=== PATIENT | female | born 1930 | race Hispanic/Latino ===

== ENCOUNTER 2017-04-10 16:04 | Inpatient (IN) | payer MEDICARE, OTHER ==
[2017-04-10 16:43] VITALS: BMI 28.8
[2017-04-10] MEDS: diltiaZEM IVPB 100mg in NS 100 ML IV PRN ×4 (17:07→19:01)
--- NOTE | 2017-04-10 17:15 | ED PDOC ---
Arrival/HPI - General Chief Complaint: Flu-like Symptoms Time Seen by Provider: 04/10/17 16:06 Historian: Patient, Family EM Caveat: Acuity of Condition, Unstable Vital Signs - History of Present Illness Narrative History of Present Illness (Text): 04/10/17 17:06 Pt is an 87 yo F BIB her daughter for flu-like symptoms. Pt states that she started to feel body aches and has a non-productive cough at night since Thursday. PMH includes CHF, HTN and COPD for which she take meds however she reports that she stopped taking her medications Thursday-Thursday for unknown reasons. Pt lives alone and is noted to be inconsistent with feeding and general care of herself. States she did not have the flu vaccine this year and has had sick contacts recently (influenza) Denies cp, sob, dizziness, JUAN, GIB, n /v/d. she took her medications this morning. 04/10/17 17:58 Time/Duration: Prior to Arrival Symptom Course: Unchanged Quality: Tightness Severity Level: Moderate Activities at Onset: Rest Context: Sitting Past Medical History - Provider Review Nursing Documentation Reviewed: Yes - Travel History Have you recently traveled outside [place] w/in the past 3 mons?: No - Infectious Disease Hx of Infectious Diseases: None - Tetanus Immunization Tetanus Immunization: Unknown - Cardiac Hx Cardiac Disorders: Yes Hx Congestive Heart Failure: Yes (diagnosed 6 yrs ago) Hx Hypertension: Yes Hx Pacemaker: No - Pulmonary Hx Chronic Obstructive Pulmonary Disease (COPD): Yes - Neurological Hx Paralysis: No - HEENT Hx HEENT Disorder: Yes (glasses) Hx Cataracts: Yes (b/l sx) - Endocrine/Metabolic Hx Endocrine Disorders: No - Hematological/Oncological Hx Blood Transfusions: Yes Hx Blood Transfusion Reaction: No - Musculoskeletal/Rheumatological Hx Musculoskeletal Disorders: Yes (BACK PAIN WHEN WALKING) - Gastrointestinal Hx Gastrointestinal Disorders: (liquid green stools post r hemicolectony) Other/Comment: h/o colon CA - Genitourinary/Gynecological Hx Reproductive Disorders: No - Psychiatric Hx Emotional Abuse: No Hx Physical Abuse: No Hx Substance Use: No - Surgical History Hx Coronary Stent: Yes (x 2 with valve replacement.) Other/Comment: Part of colon removed for colon CA. - Anesthesia Hx Anesthesia: Yes Hx Anesthesia Reactions: No Hx Malignant Hyperthermia: No - Suicidal Assessment Feels Threatened In Home Enviroment: No Family/Social History - Physician Review Nursing Documentation Reviewed: Yes Family/Social History: No Known Family HX Smoking Status: Former Smoker Hx Alcohol Use: No Hx Substance Use: No Allergies/Home Meds Allergies/Adverse Reactions: Allergies No Known Allergies Allergy (Verified 02/19/16 13:06) Home Medications: Home Meds Medication Instructions Recorded Confirmed Aspirin [Aspirin EC] 81 mg PO QAM 01/01/15 04/10/17 Simvastatin 20 mg PO HS 01/01/15 04/10/17 Furosemide [Lasix] 40 mg PO QOTHERDAY 07/09/15 04/10/17 Lisinopril [Zestril] 10 mg PO QAM 07/09/15 04/10/17 Pantoprazole [Protonix] 40 mg PO DAILY 07/09/15 04/10/17 Ergocalciferol (Vitamin D2) 50,000 iu PO SAT 09/12/15 04/10/17 [Vitamin D] Cholestyramine [Questran] 1 packet PO BID 04/10/17 04/10/17 Metoprolol Tartrate [Lopressor] 1 tab PO BID 04/10/17 04/10/17 Review of Systems - Physician Review All systems were reviewed & negative as marked: Yes - Review of Systems Constitutional: Normal Eyes: Normal ENT: Normal Respiratory: Cough (mostly nocturnal episodes) Cardiovascular: Normal Gastrointestinal: Normal Genitourinary Female: Normal Musculoskeletal: Normal, Other (muscles ache throughout) Skin: Normal Neurological: Normal Endocrine: Normal Hemo/Lymphatic: Normal Psychiatric: Normal Physical Exam Vital Signs Temp Pulse Pulse Resp BP Pulse Ox 04/11/17 00:01 97.9 F 64 21 110/61 93 L 04/10/17 23:51 97.9 F 64 62 21 110/61 04/10/17 23:17 62 18 96/55 L 98 04/10/17 22:53 69 16 90/44 L 94 L 04/10/17 22:06 65 16 92/58 L 93 L 04/10/17 19:37 117 H 72/53 L 04/10/17 19:35 106 H 18 65/29 L 91 L 04/10/17 19:20 103 H 15 105/53 L 95 04/10/17 19:01 133 H 18 106/48 L 97 04/10/17 18:41 106 H 16 97 01/26/18 18:30 107 H 15 96/53 L 97 04/10/17 17:55 133 H 18 106/37 L 96 04/10/17 17:43 109 H 16 106/37 L 95 04/10/17 17:30 120 H 18 150/90 96 04/10/17 17:18 89 18 134/80 91 L 04/10/17 17:07 176 H 134/80 04/10/17 16:44 97.8 F 81 18 119/56 L 95 04/10/17 16:39 97.8 F 149 H 17 119/56 L 96 04/10/17 16:25 81 18 Temperature: Afebrile Blood Pressure: Normal Pulse: Tachycardic Respiratory Rate: Normal Appearance: Positive for: Non-Toxic, Comfortable Pain Distress: None Mental Status: Positive for: Alert and Oriented X 3 - Systems Exam Head: Present: Atraumatic, Normocephalic Pupils: Present: PERRL Extroacular Muscles: Present: EOMI Conjunctiva: Present: Normal Mouth: Present: Moist Mucous Membranes Neck: Present: Normal Range of Motion Respiratory/Chest: Present: Clear to Auscultation, Rales, Other (cough). No: Respiratory Distress, Accessory Muscle Use Cardiovascular: Present: Murmurs, Irregular Rhythm, Tachycardic Abdomen: Present: Normal Bowel Sounds. No: Tenderness, Distention, Peritoneal Signs Back: Present: Normal Inspection Upper Extremity: Present: Normal Inspection. No: Cyanosis, Edema Lower Extremity: Present: Normal Inspection. No: Edema Neurological: Present: GCS=15, CN II-XII Intact, Speech Normal Skin: Present: Warm, Dry, Normal Color. No: Rashes Psychiatric: Present: Alert, Oriented x 3, Normal Insight, Normal Concentration Medical Decision Making ED Course and Treatment: 04/10/17 17:48 Pt is an 87 yo F BIB her daughter for flu-like symptoms. Pt states that she started to feel body aches and has a non-productive cough at night since Thursday. Plan: Cardiac workup: ecg, troponins, iso enzymes, cmp, bnp, cbc w diff portable cxr Rapid Flu Iv drip of Cardizem 20 started with stable BP of 119/56 ASA 325 mg po stat Fluids on hold until labs return Nitro paste and lopressor on hold until tachycardia resolved Cardizem drip was set at 20 initially and then down to 10 pt remained tachycardic and BP continued to drop Dr. Vaughn and back shoe cutter Dr. Woods were contacted; Vamp Presser, Dr. Sherman , contacted to admit pt to ICU Consult pending ICU residents assessed pt and deemed her stable after doing another ecg; normal sinus rhythm Pt will go to Telemetry for monitoring and further eval 04/11/17 01:21 Re-evaluation Time: 20:00 (BP resolving and pt stable) Reassessment Condition: Re-examined - Lab Interpretations Lab Results: 04/10/17 16:54 04/10/17 16:54 Lab Results 04/10/17 16:54: Influenza Typ A,B (EIA) Negative for flu a/b 04/10/17 16:54: Sodium 137, Potassium 4.0, Chloride 102, Carbon Dioxide 20 L, Anion Gap 19, BUN 28 H, Creatinine 2.3 H, Est GFR ( Amer) 24, Est GFR ( Non-Af Amer) 20, Random Glucose 170 H, Calcium 9.8, Total Bilirubin 0.6, AST 31 , ALT 22, Alkaline Phosphatase 60, Lactate Dehydrogenase 786 H, Total Creatine Kinase 249 H, CK-MB (CK-2) 3.4, CK-MB (CK-2) % Cancelled, Troponin I 0.57 H*, NT -Pro-B Natriuret Pep 3090 H, Total Protein 7.3, Albumin 4.3, Globulin 3.0, Albumin/Globulin Ratio 1.4 04/10/17 16:54: PT 13.2 H, INR 1.15 H 04/10/17 16:54: WBC 10.9 D, RBC 4.92, Hgb 14.6, Hct 45.8, MCV 93.1, MCH 29.7, MCHC 31.9, RDW 15.7 H, Plt Count 164, MPV 10.5, Gran % 82.9 H, Lymph % (Auto) 12.2 L, [place] % (Auto) 4.8, Eos % (Auto) 0.0 L, Baso % (Auto) 0.1, Gran # 9.05 H , Lymph # 1.3, [place] # 0.5, Eos # 0.0, Baso # 0.01 I have reviewed the lab results: Yes Interpretation: Abnormal lab values - RAD Interpretation Radiology Orders: 04/10/17 16:56 CHEST PORTABLE [RAD] Stat Diamond Merchant: Radiologist - EKG Interpretation Interpreted by ED Physician: Yes (New onset a.fib) - Medication Orders Current Medication Orders: diltiaZEM IVPB 100mg in NS (Cardizem 100mg In Ns) 100 mls @ 5 mls/hr IV .Q20H PRN; Protocol; 5 MG/HR PRN Reason: TITRATE PER MD ORDER Last Admin: 04/10/17 19:01 Dose: 20 mls/hr eMAR Start Stop Document 04/10/17 19:01 SE (Rec: 04/10/17 19:02 SE [id number]) Intravenous Solution Start Date 04/10/17 Start Time 19:02 Discontinued Medications Aspirin (Aspirin) 325 mg PO STAT STA Stop: 04/10/17 17:42 Last Admin: 04/10/17 17:58 Dose: 325 mg Diltiazem HCl (Cardizem) 20 mg IVP STAT STA Stop: 04/10/17 16:57 Last Admin: 04/10/17 17:07 Dose: 20 mg IVP Administration Document 04/10/17 17:07 IT (Rec: 04/10/17 17:11 IT [id number]) Charges for Administration # of IVP Administrations 1 MAR Pulse and Blood Pressure Document 04/10/17 17:07 IT (Rec: 04/10/17 17:11 IT [id number]) Pulse Pulse Rate (60-90) 176 Blood Pressure Blood Pressure (100/60-150/90) 134/80 Sodium Chloride (Sodium Chloride 0.9%) 500 mls @ 999 mls/hr IV .Q31M STA Stop: 04/10/17 18:40 Last Admin: 04/10/17 18:12 Dose: 999 mls/hr eMAR Start Stop Document 04/10/17 18:12 SE (Rec: 04/10/17 18:12 SE [id number]) Intravenous Solution Start Date 04/10/17 Start Time 18:12 Disposition/Present on Arrival - Present on Arrival Any Indicators Present on Arrival: No History of DVT/PE: No History of Uncontrolled Diabetes: No Urinary Catheter: No History of Decub. Ulcer: No History Surgical Site Infection Following: None - Disposition Have Diagnosis and Disposition been Completed?: Yes Diagnosis: New onset atrial fibrillation, Cough Disposition: HOSPITALIZED Disposition Time: 22:00 (ICU resident evaluated; pt to go to Tele) Patient Plan: Admission Patient Problems: Current Active Problems Problem Status Onset New onset atrial fibrillation Acute Cough Acute Condition: STABLE
[2017-04-10 17:23] LABS: INR 1.15 (0.93-1.08); PROTHROMBIN TIME 13.2 SECONDS (9.4-12.5)
[2017-04-10 17:24] LABS: BASO # 0.01 K/mm3 (0.0-2.0); BASO % 0.1 % (0.0-3.0); GRAN # 9.05 (1.4-6.5); GRAN % 82.9 % (50.0-68.0); HEMOGLOBIN 14.6 g/dL (12.0-16.0); LYMPH # 1.3 (1.2-3.4); LYMPH % 12.2 % (22.0-35.0); MEAN CELL VOLUME 93.1 fl (80.0-105.0); MEAN CORPUSCULAR HEMOGLOBIN 29.7 pg (25.0-35.0); MEAN CORPUSCULAR HGB CONC 31.9 g/dl (31.0-37.0); MEAN PLATELET VOLUME 10.5 fl (7.0-11.0); MONO # 0.5 (0.1-0.6); MONO % 4.8 % (1.0-6.0); RBC 4.92 10^6/uL (3.5-6.1); RED CELL DISTRIBUTION WIDTH 15.7 % (11.5-14.5); WHITE BLOOD COUNT 10.9 10^3/ul (4.5-11.0)
[2017-04-10 17:38] LABS: ALB/GLOB RATIO 1.4 (1.1-1.8); ALBUMIN 4.3 g/dL (3.0-4.8); CALCIUM 9.8 mg/dL (8.4-10.5)
[2017-04-10] MEDS ORDERED: Sodium Chloride 0.9% 500 ML IV STA (18:10)
[2017-04-10 18:44] LABS: CK-MB 3.4 ng/mL (0.0-3.6); TROPONIN I 0.57 ng/mL
--- NOTE | 2017-04-10 21:57 | CP.PCM.CON ---
<Juliet Posadas - Last Filed: 04/10/17 22:51> History of Present Illness - History of Present Illness History of Present Illness: ICU consult note for Dr. Sherman Reason for consult: hypotention post Cardizem drip due to rvr afib. Patient is an 87 y/o with PMHx of CAD s/p CABG, CHF? valvular replacement?, colon cancer s/p resection, was on chemo, htn, hld, history of intermittent diarrhea was on antibiotics who initially was sent from PMD's office due to flue like symptoms for 4 days and was found to have RVR afib in the ED. Patient was started on Cardizem drip, and developed a transient episode of hypotension, thus ICU is consulted to evaluate patient. Patient states she run out of her medications including Lasix for few days, then on Thursday she started to experience dry cough. Patient was able to refill the meds later on Thursday, but decided to take an extra dose. However the cough persisted, on , patient noted when she coughs she experiences loose bowel movement simultaneously. Admits to body aches, denies fever, chest pain. Denies palpitations. Patient also added since Thursday she's experiencing poor oral intake. Denies vomiting. PMHx: CAD s/p CABg 6 years ago, CHF? valvular replacement?, colon cancer s/p resection 2014, was on chemo, htn, hld, history of intermittent diarrhea was on antibiotics PSHx: CABG, valvular replacement, right hemicolectomy with lymphadenectomy. FMHx: + family history of cancers. Social: former tobacco, quit 6 years ago, denies alcohol and illicit drug use. Home meds: asa 8 1 mg, cholestyramine 4 gm per day, Lasix 40 mg, lisinopril 10 mg, metoprolol 50 mg, protonix 40 mg, zocor 20 mg Review of Systems - Review of Systems All systems: reviewed and no additional remarkable complaints except Review of Systems: 12 point ROS reviewed, all negative except as per HPI. Past Patient History - Infectious Disease Hx of Infectious Diseases: None - Tetanus Immunizations Tetanus Immunization: Unknown - Past Social History Smoking Status: Former Smoker Alcohol: None Drugs: Denies Home Situation {Lives}: Alone - CARDIAC Hx Cardiac Disorders: Yes Hx Congestive Heart Failure: Yes (diagnosed 6 yrs ago) Hx Hypertension: Yes Hx Pacemaker: No - PULMONARY Hx Chronic Obstructive Pulmonary Disease (COPD): Yes - NEUROLOGICAL Hx Paralysis: No - HEENT Hx HEENT Problems: Yes (glasses) Hx Cataracts: Yes (b/l sx) - ENDOCRINE/METABOLIC Hx Endocrine Disorders: No - HEMATOLOGICAL/ONCOLOGICAL Hx Blood Transfusions: Yes Hx Blood Transfusion Reaction: No - MUSCULOSKELETAL/RHEUMATOLOGICAL Hx Musculoskeletal Disorders: Yes (BACK PAIN WHEN WALKING) - GASTROINTESTINAL Hx Gastrointestinal Disorders: (liquid green stools post r hemicolectony) Other/Comment: h/o colon CA - GENITOURINARY/GYNECOLOGICAL Hx Reproductive Disorders: No - PSYCHIATRIC Hx Emotional Abuse: No Hx Physical Abuse: No Hx Substance Use: No - SURGICAL HISTORY Hx Coronary Stent: Yes (x 2 with valve replacement.) Other/Comment: Part of colon removed for colon CA. - ANESTHESIA Hx Anesthesia: Yes Hx Anesthesia Reactions: No Hx Malignant Hyperthermia: No Meds Allergies/Adverse Reactions: Allergies Allergy/AdvReac Type Severity Reaction Status Date / Time No Known Allergies Allergy Verified 02/19/16 13:06 - Medications Medications: Current Medications diltiaZEM IVPB 100mg in NS (Cardizem 100mg In Ns) 100 mls @ 5 mls/hr IV .Q20H PRN; Protocol; 5 MG/HR PRN Reason: TITRATE PER MD ORDER Last Admin: 04/10/17 19:01 Dose: 20 mls/hr Physical Exam - Constitutional Appears: No Acute Distress - Head Exam Head Exam: ATRAUMATIC, NORMAL INSPECTION, NORMOCEPHALIC - Eye Exam Eye Exam: EOMI, Normal appearance, PERRL. absent: Scleral icterus Pupil Exam: NORMAL ACCOMODATION - ENT Exam ENT Exam: Mucous Membranes Dry - Neck Exam Neck exam: Positive for: Full Rom, Normal Inspection. Negative for: Tenderness - Respiratory Exam Respiratory Exam: Rales (mild, at the bases.), NORMAL BREATHING PATTERN. absent : Accessory Muscle Use, Chest Wall Tenderness, Decreased Breath Sounds, Prolonged Expiratory Phase, Rhonchi, Wheezes, Respiratory Distress, Stridor - Cardiovascular Exam Cardiovascular Exam: REGULAR RHYTHM, RRR, +S1, +S2. absent: Bradycardia, Tachycardia, Clicks, Diastolic murmur, Gallop, Irregular Rhythm, JVD, Rubs, +S4 , Systolic Murmur - GI/Abdominal Exam GI & Abdominal Exam: Normal Bowel Sounds, Soft. absent: Diminished Bowel Sounds , Distended, Firm, Guarding, Rebound, Rigid, Tenderness Additional comments: Well healed old surgical scar. - Extremities Exam Extremities exam: Positive for: normal inspection, pedal pulses present. Negative for: pedal edema, tenderness - Back Exam Back exam: NORMAL INSPECTION - Neurological Exam Neurological exam: Alert, Oriented x3 - Psychiatric Exam Psychiatric exam: Normal Affect, Normal Mood - Skin Skin Exam: Dry, Intact, Normal Color, Warm Results - Vital Signs Recent Vital Signs: Last Vital Signs Temp 97.8 F 04/10/17 16:44 Pulse 117 H 04/10/17 19:37 Resp 18 04/10/17 19:35 BP 72/53 L 04/10/17 19:37 Pulse Ox 91 L 04/10/17 19:35 - Labs Result Diagrams: 04/10/17 16:54 04/10/17 16:54 Labs: Laboratory Results - last 24 hr 04/10/17 04/10/17 04/10/17 16:54 16:54 16:54 WBC 10.9 D RBC 4.92 Hgb 14.6 Hct 45.8 MCV 93.1 MCH 29.7 MCHC 31.9 RDW 15.7 H Plt Count 164 MPV 10.5 Gran % 82.9 H Lymph % (Auto) 12.2 L Real % (Auto) 4.8 Eos % (Auto) 0.0 L Baso % (Auto) 0.1 Gran # 9.05 H Lymph # 1.3 Real # 0.5 Eos # 0.0 Baso # 0.01 PT 13.2 H INR 1.15 H Sodium 137 Potassium 4.0 Chloride 102 Carbon Dioxide 20 L Anion Gap 19 BUN 28 H Creatinine 2.3 H Est GFR ( Amer) 24 Est GFR (Non-Af Amer) 20 Random Glucose 170 H Calcium 9.8 Total Bilirubin 0.6 AST 31 ALT 22 Alkaline Phosphatase 60 Lactate Dehydrogenase 786 H Total Creatine Kinase 249 H CK-MB (CK-2) 3.4 CK-MB (CK-2) % Cancelled Troponin I 0.57 H* NT-Pro-B Natriuret Pep 3090 H Total Protein 7.3 Albumin 4.3 Globulin 3.0 Albumin/Globulin Ratio 1.4 Influenza Typ A,B (EIA) 04/10/17 16:54 WBC RBC Hgb Hct MCV MCH MCHC RDW Plt Count MPV Gran % Lymph % (Auto) Real % (Auto) Eos % (Auto) Baso % (Auto) Gran # Lymph # Real # Eos # Baso # PT INR Sodium Potassium Chloride Carbon Dioxide Anion Gap BUN Creatinine Est GFR ( Amer) Est GFR (Non-Af Amer) Random Glucose Calcium Total Bilirubin AST ALT Alkaline Phosphatase Lactate Dehydrogenase Total Creatine Kinase CK-MB (CK-2) CK-MB (CK-2) % Troponin I NT-Pro-B Natriuret Pep Total Protein Albumin Globulin Albumin/Globulin Ratio Influenza Typ A,B (EIA) Negative for flu a/b - EKG Data EKG Interpreted by: Myself EKG shows normal: Sinus rhythm Rate: Normal Assessment & Plan - Assessment and Plan (Free Text) Assessment: Patient is an 87 y/o with PMHx of CAD s/p CABG, CHF? valvular replacement?, colon cancer s/p resection, was on chemo, htn, hld, history of intermittent diarrhea was on antibiotics who initially presented to the ED due to flue like symptoms for 4 days and was found to have RVR afib on the initial EKG in the ED. Patient was started on Cardizem drip, and developed transient hypotention, which eventually improved with a litter of fluid. Patient's heart was also controlled and the rate returned to sinus on the monitor and confirmed on repeat EKG. Patient to be admitted to telemetry floor. Plan: Neuro: alert and wake, speaking in full sentences, doesn't appear to be confused. Pulm: stable, saturating 95-100% on room air. No clinical signs of fluid overload. Mild vascular congestion on chest x-ray, however no leg edema, and no respiratory distress other than the dry cough. Rapid flu negative. oxygen supplementation prn Cardiac: RVR afib on initial EKG, now in normal sinus rhythm post Cardizem drip. Transient hypotention: resolved with fluid hydration h/o CAD with CABG. with troponin leak and elevated pro bnp Recommend tele monitoring Consider cardiology eval, and echo Trend troponin ID: Tachycardia resolved, no leukocytosis and afebrile, monitor for sepsis. Renal: ROSALIE likely due to dehydration, low intake and diarrhea. Fluid hydration as tolerated. Endo: Hyperglycemia - continue to monitor Heme: stable Gi: chronic recurrent diarrhea- recommend stool testing for c. diff due to recent antibiotics. Dispo- admit to tele. Please re-consult ICU prn if medical status changes. Patient seen, examined and case discussed with Dr Sherman. - Date & Time Date: 04/10/17 Time: 10:40 <Benji Sherman - Last Filed: 04/11/17 06:17> Meds - Medications Medications: Current Medications diltiaZEM IVPB 100mg in NS (Cardizem 100mg In Ns) 100 mls @ 5 mls/hr IV .Q20H PRN; Protocol; 5 MG/HR PRN Reason: TITRATE PER MD ORDER Last Admin: 04/10/17 19:01 Dose: 20 mls/hr Results - Vital Signs Recent Vital Signs: Last Vital Signs Temp 97.9 F 04/11/17 00:01 Pulse 74 04/11/17 05:58 Resp 21 04/11/17 00:01 BP 110/61 04/11/17 00:01 Pulse Ox 93 L 04/11/17 00:01 - Labs Result Diagrams: 04/10/17 16:54 04/10/17 16:54 Labs: Laboratory Results - last 24 hr 04/11/17 05:50 Urine Color Yellow Urine Appearance Sl cloudy Urine pH 5.0 Ur Specific [place] >= 1.030 Urine Protein Trace H Urine Glucose (UA) Negative Urine Ketones Negative Urine Blood Small H Urine Nitrate Negative Urine Bilirubin Negative Urine Urobilinogen 0.2 Ur Leukocyte Esterase Small H Attending/Attestation - Attestation I have personally seen and examined this patient.: Yes I have fully participated in the care of the patient.: Yes I have reviewed all pertinent clinical information: Yes Notes (Text): 04/11/17 06:14 I agree with the above mentioned note and exam as listed by the resident with the addition/exception of the followin87 y/o female with CAD s/p CABG, bioprosthetic Aortic valve, Htn, Colon Ca s/p right sided colectomy + chemotherapy presented to the ED after seeing her PMD due to complaints of a cough and flu-like symptoms. The patient reports that she ran out of her diuretic medication (lasix) and was not taking it for a few days. She felt a cough and congestion, so she took extra pills when she next filled her prescription. In the ED she was found to be in Afib with rvr; started on a cardizem drip and subsequently became hypotensive. During the time of my examination of the patient, she had reverted back to sinus rhythm with a HR in the 60's and her SBP had returned to 114mmHg. She denied any complaints of chest pain/palpitations/shortness of breath/cough/fever/chills. She did not require an ICU admission and could be admitted to telemetry for further evaluation of her ROSALIE, elevated trop in the setting of ROSALIE and paroxysmal Afib.
[2017-04-11 05:56] LABS: URINE BILIRUBIN NEGATIVE (NEGATIVE); URINE BLOOD SMALL (NEGATIVE); URINE GLUCOSE (UA) NEGATIVE (NEGATIVE); URINE LEUKOCYTE ESTERASE SMALL Leu/uL (NEGATIVE); URINE NITRATE NEGATIVE (NEGATIVE); URINE PROTEIN TRACE mg/dL (<30 mg/dL); URINE UROBILINOGEN 0.2 E.U./dL (<1 E.U./dL)
[2017-04-11 05:57] LABS: URINE APPEARANCE SL CLOUDY (CLEAR); URINE COLOR YELLOW (YELLOW)
[2017-04-11 06:30] LABS: URINE BACTERIA MANY (NEG)
[2017-04-11] MEDS ORDERED: Sodium Chloride 0.9% 1,000 ML IV SCH (07:15)
--- NOTE | 2017-04-11 08:20 | RAD ---
HISTORY: A-FIB with RVR COMPARISON: 01/12/2015 FINDINGS: LUNGS: The lungs are well inflated. There is mild pulmonary venous congestion. No focal consolidation. PLEURA: No significant pleural effusion identified, no pneumothorax apparent. CARDIOVASCULAR: There is mild cardiomegaly. Status post CABG with OSSEOUS STRUCTURES: No significant abnormalities. VISUALIZED UPPER ABDOMEN: Normal. OTHER FINDINGS: None. IMPRESSION: Mild cardiomegaly and pulmonary venous congestion. No active pulmonary disease.
[2017-04-11] MEDS: Cholestyramine 4 gm/Pkt UD PO SCH ×2 (10:07→17:39)
--- NOTE | 2017-04-11 13:34 | CON ---
DATE: 04/11/2017 REQUESTING PHYSICIAN: Dr. Montaño REASON FOR CONSULTATION: Dyspnea and atrial fibrillation. HISTORY OF PRESENT ILLNESS: This is an 87-year-old woman known to us from prior admissions with a history of prior bypass surgery and aortic valve replacement who was sent to the Emergency Room by Dr. Purdy after presenting with body aches and nonproductive cough. In the Emergency Room, she was noted in atrial fibrillation with rapid ventricular response and treated with IV diltiazem. She had a transient hypotension. This improved with fluid infusion. She has subsequently converted to sinus rhythm.. She is currently seen lying in bed on telemetry and feels improved. She continues to have a cough. Her past history is notable for the problems mentioned above. She has undergone prior hemicolectomy for colon cancer. She has a history of COPD as well. She also has a history of hyperlipidemia. MEDICATIONS: Her medications at home include aspirin, simvastatin 20 mg daily, Lasix 40 mg every other day, Zestril 10 mg daily, Protonix 40 mg daily, Questran and metoprolol. ALLERGIES: SHE HAS NO REPORTED ALLERGIES. SOCIAL HISTORY: She is a former smoker. She denies alcohol use. FAMILY HISTORY: Both parents are from age-related illness. REVIEW OF SYSTEMS: A 10-point review of systems is otherwise unremarkable. PHYSICAL EXAMINATION: GENERAL: She is a very elderly woman who appears comfortable at the present time. VITAL SIGNS: Her blood pressure is 118/70 with a pulse of 70 and sinus, and respirations are 16. She is afebrile. HEENT: Normocephalic and atraumatic. NECK: Supple. No JVD noted. CHEST: Bilateral scattered rhonchi heard. HEART: PMI displaced laterally with systolic murmur at left sternal border. GASTROINTESTINAL: The abdomen is soft and nontender with normoactive bowel sounds. EXTREMITIES: No edema. SKIN: Warm and dry. PSYCHIATRIC: Normal mood and affect. NEUROLOGIC: Alert and oriented x3. No gross motor sensory is appreciable. DIAGNOSTIC DATA: Her white count is 10.9 and hemoglobin and hematocrit are 14.6 and 45.8 with platelet count of 164,000. PT and PTT 13.2 and 1.15. Potassium is 4.0, BUN and creatinine are 28 and 2.3, and glucose is 170. Troponin is 0.57. BNP of 3090. CK 249 with a negative MB fraction. Chest x-ray reveals an enlarged cardiac silhouette with post-sternotomy changes and relatively clear lung gibson. Electrocardiogram revealed atrial fibrillation with rapid ventricular response. Atrial fibrillation with rapid ventricular response, right bundle-branch block with left anterior hemiblock. IMPRESSION 1. Atrial fibrillation with rapid ventricular response, now in sinus rhythm. 2. Coronary disease status post prior bypass surgery and aortic valve replacement, clinically stable. 3. Borderline troponin with borderline creatine kinase and negative MB fraction significance unclear, no clear evidence of cardiac ischemia present. 4. Renal insufficiency, unclear if this is acute on chronic, may also be contributing to mildly elevated troponin due to decreased renal clearance. 5. Rest of problems as noted. RECOMMENDATIONS: At this time, her metoprolol will be continued. IV diltiazem has been discontinued. Aspirin will be continued for now. She has had a history of gastrointestinal bleeding in the past and may not be an ideal candidate for anticoagulant therapy. She has no evidence of recurrent atrial fibrillation and would likely be safer to continue aspirin alone. An echocardiogram will be obtained and follow up enzymes obtained as well. If she remains in sinus rhythm, hopefully early discharge can be planned. Thank you for this consultation and will be happy to follow along as needed. Vishnu Castle MD [facility]
--- NOTE | 2017-04-11 15:58 | CARD ---
APPROVED REPORT EKG Measurement Heart [id number] <Conclusion> Sinus rhythm with premature supraventricular complexes Right bundle branch block Left anterior fascicular block Bifascicular block Moderate voltage criteria for LVH, may be normal variant Cannot rule out Septal infarct, age undetermined Abnormal ECG
--- NOTE | 2017-04-11 16:03 | CARD ---
APPROVED REPORT EKG Measurement Heart [id number] <Conclusion> Atrial fibrillation Right bundle branch block Left anterior fascicular block Bifascicular block Voltage criteria for left ventricular hypertrophy Cannot rule out Septal infarct, age undetermined Abnormal ECG
--- NOTE | 2017-04-11 16:05 | CARD ---
APPROVED REPORT EKG Measurement Heart [id number] <Conclusion> Atrial fibrillation with rapid ventricular response Right bundle branch block Left anterior fascicular block Bifascicular block Voltage criteria for left ventricular hypertrophy Possible Lateral infarct, age undetermined Abnormal ECG
--- NOTE | 2017-04-12 04:38 | HP ---
DATE: HISTORY OF PRESENT ILLNESS: The patient is an 87-year-old who came to Emergency Room on 04/10/2017 because of generalized weakness, not feeling well, has generalized body aches and pain, complained of cough and congestion for the last three to four days. She thought she has a flu, so daughter brought her to Emergency Room for further evaluation. Denies any nausea or vomiting. While she was in the ER, she was found to have rapid Afib, was given IV diltiazem with good response. Later on, she was converted into sinus rhythm, so she was admitted for further evaluation. PAST MEDICAL HISTORY: Significant for: 1. Open heart surgery. 2. Status post aortic valve replacement. 3. History of COPD. 4. History of hypertension. 5. Hyperlipidemia. 6. History of peptic ulcer disease. ALLERGIES: SHE IS NOT ALLERGIC TO ANY MEDICATIONS. MEDICATIONS AT HOME: She is on aspirin 81 daily, simvastatin 20 mg daily, Lasix 40 mg every other day, Zestril 10 mg daily, Protonix 40 daily, Questran, and metoprolol 25 daily. SOCIAL HISTORY: She lives with her daughter, history of smoking in the past. FAMILY HISTORY: Not relevant. REVIEW OF SYSTEMS: Significant for generalized body aches and pain, but states she is feeling better now. PHYSICAL EXAMINATION: GENERAL: She is awake, alert, oriented and communicative. VITAL SIGNS: She is afebrile, pulse 72, respirations 16 and blood pressure 113/56. LUNGS: Bilateral fair airflow. No rhonchi or crackle. HEART: S1 and S2 audible. Regular rate and rhythm. ABDOMEN: Soft, obese, and nontender. No rebound. No guarding. NEUROLOGIC: The patient is awake, alert, oriented, and communicative. Moves all extremities. LABORATORY EXAMINATION: WBC 10.9, hemoglobin 14, hematocrit 45 and platelets of 164. PT 13.2, INR 1.15. Chemistry; sodium 137, potassium 4.0, chloride 102, CO2 of 20, BUN 28, creatinine 2.3 and blood sugar of 170. LFTs are within normal limits. Alkaline phosphatase is 60, LDH is 786. Troponin is 0.57, followup is 1.69. Urinalysis shows small leukocytes. Flu test is negative. ASSESSMENT: 1. Non-ST elevation myocardial infarction. 2. Rapid atrial fibrillation. 3. Coronary artery disease status post open heart surgery. 4. Hyperlipidemia. 5. Renal insufficiency. PLAN: Currently, the patient is on aspirin 81 daily. She is on statin. She has been started on beta-rufus. Echocardiogram has been requested. We will follow up her electrolyte. Cardiology input noted and appreciated. We will follow up with this patient in a.m. Violet De La Vega MD
[2017-04-12 09:00] LABS: BASO # 0.01 K/mm3 (0.0-2.0); BASO % 0.2 % (0.0-3.0); EOS # 0.1 (0.0-0.7); EOS % 2.2 % (1.5-5.0); GRAN # 2.28 (1.4-6.5); GRAN % 50.9 % (50.0-68.0); HEMOGLOBIN 12.9 g/dL (12.0-16.0); LYMPH # 1.5 (1.2-3.4); LYMPH % 34.2 % (22.0-35.0); MEAN CELL VOLUME 92.8 fl (80.0-105.0); MEAN CORPUSCULAR HEMOGLOBIN 29.1 pg (25.0-35.0); MEAN CORPUSCULAR HGB CONC 31.3 g/dl (31.0-37.0); MEAN PLATELET VOLUME 10.4 fl (7.0-11.0); MONO # 0.6 (0.1-0.6); MONO % 12.5 % (1.0-6.0); RBC 4.44 10^6/uL (3.5-6.1); RED CELL DISTRIBUTION WIDTH 15.5 % (11.5-14.5); WHITE BLOOD COUNT 4.5 10^3/ul (4.5-11.0)
[2017-04-12 09:11] LABS: ALBUMIN 3.5 g/dL (3.0-4.8); BLOOD UREA NITROGEN 20 mg/dL (7-21); CALCIUM 9.1 mg/dL (8.4-10.5); GFR AFRICAN-AMERICAN > 60; GFR NON-AFRICAN AMERICAN 53
[2017-04-12 09:12] LABS: ALB/GLOB RATIO 1.3 (1.1-1.8); ALT/SGPT 32 U/L (7-56); AST/SGOT 37 U/L (14-36)
[2017-04-12] MEDS: Cholestyramine 4 gm/Pkt UD PO SCH ×2 (10:18→17:27)
--- NOTE | 2017-04-12 18:03 | PN ---
DATE: 04/12/2017 SUBJECTIVE: The patient is seen sitting in bed on telemetry. She feels somewhat more comfortable. She continues to have a cough, but is less dyspneic. She denies any chest pain. CURRENT MEDICATIONS: Include Ecotrin, Lipitor, metoprolol, and Questran. PHYSICAL EXAMINATION: VITAL SIGNS: Her blood pressure is 120/60 with a pulse of 74 and sinus, respirations are 14. She has had no recurrence of atrial fibrillation. She is afebrile. HEENT: No JVD. CHEST: Few scattered rhonchi. HEART: PMI displaced laterally with systolic murmur at the left sternal border. ABDOMEN: Soft and nontender with bowel sounds. EXTREMITIES: No edema. DIAGNOSTIC DATA: Troponin 0.40. Potassium 4.1, BUN and creatinine are 20 and 1.0. White count is 4.5, hemoglobin and hematocrit are 12.9 and 41.2 with platelet count of 145,000. IMPRESSION: 1. Paroxysmal atrial fibrillation, currently in sinus rhythm. 2. Coronary artery disease, status post prior bypass surgery and aortic valve replacement, stable at present. 3. Borderline troponin with negative CK-MB, doubt clear cardiac ischemia. 4. Renal insufficiency, clinically improved. RECOMMENDATIONS: Her current medications will be continued for now. As long she has no evidence of recurrent atrial fibrillation, anticoagulant therapy will be withheld given the risk of bleeding based upon her multiple episodes of severe gastrointestinal bleeding in the past. An echocardiogram is pending. She was encouraged to ambulate. We will follow and make further changes as appropriate . Vishnu Castle MD
[2017-04-12] MEDS: Levalbuterol 1.25 MG/3 ML Inhal Soln UD IH SCH (20:50)
--- NOTE | 2017-04-12 21:38 | PN ---
DATE: SUBJECTIVE: The patient is an 87-year-old, seen and examined, lying in bed, seems to be comfortable, and complain of cough and congestion. She states she is congested and coughing and unable to bring up phlegm. PHYSICAL EXAMINATION: VITAL SIGNS: She is afebrile, pulse 72, respirations 20, and blood pressure 120/64. LUNGS: Bilateral soft crackle in upper and mid lung region. HEART: S1 and S2 audible. Irregular rate control. ABDOMEN: Soft, nontender, and obese. No hepatosplenomegaly. NEUROLOGIC: She is awake, alert, and oriented. Able to communicate. Bilateral leg +1 edema. LABORATORY DATA: WBC is 4.5, hemoglobin 12.9, hematocrit 41, and platelet of 145. Chemistry; sodium 143, potassium 4.1, chloride 112, CO2 of 20, BUN 20 and creatinine of 1.0. Blood sugar of 76. ASSESSMENT: 1. Status post non-ST elevation myocardial infarction. 2. Paroxysmal atrial fibrillation. 3. Chronic obstructive pulmonary disease. 4. Hypertension. 5. Congestive heart failure. 6. Coronary artery disease, history of open heart surgery. PLAN: I will start the patient on Xopenex, give her a small dose of steroid, and give her a dose of Lasix. We will get echocardiogram in a.m. Also start her on small dose of steroid. Violet De La Vega MD
[2017-04-12] MEDS ORDERED: MethylPREDNISolone 40 mg Vial IV SCH (22:00)
[2017-04-12 23:55] VITALS: O2SAT 93
[2017-04-13] MEDS: Levalbuterol 1.25 MG/3 ML Inhal Soln UD IH SCH ×3 (02:18→13:48)
[2017-04-13 07:10] LABS: HEMOGLOBIN 14.1 g/dL (12.0-16.0); MEAN CORPUSCULAR HEMOGLOBIN 29.4 pg (25.0-35.0); MEAN CORPUSCULAR HGB CONC 32.3 g/dl (31.0-37.0); MEAN PLATELET VOLUME 10.3 fl (7.0-11.0); RBC 4.8 10^6/uL (3.5-6.1)
[2017-04-13 07:35] LABS: ALB/GLOB RATIO 1.3 (1.1-1.8); ALT/SGPT 41 U/L (7-56); AST/SGOT 45 U/L (14-36); BLOOD UREA NITROGEN 22 mg/dL (7-21); CALCIUM 9.6 mg/dL (8.4-10.5); GFR AFRICAN-AMERICAN > 60; GFR NON-AFRICAN AMERICAN 60
[2017-04-13 07:56] LABS: WHITE BLOOD COUNT 2.3 10^3/ul (4.5-11.0)
[2017-04-13 08:05] LABS: GRAN # 1.29 (1.4-6.5); GRAN % 57.6 % (50.0-68.0); LYMPH # 0.9 (1.2-3.4); LYMPH % 38.4 % (22.0-35.0)
[2017-04-13 08:06] LABS: MONO # 0.1 (0.1-0.6)
--- NOTE | 2017-04-13 08:32 | CP.PCM.PN ---
Subjective - Date & Time of Evaluation Date of Evaluation: 04/13/17 Time of Evaluation: 07:00 - Subjective Subjective: Stable on 3R. No CP. + congested V/S note. RSR, NO AF seen. PE: Lungs: rhonchi Cor.: S1S2 Abd.: soft Ext.: mild edema Neuro.: alert Labs: KUQ=0510, Cr.= 0.9. + trops noted. Objective - Vital Signs/Intake and Output Vital Signs (last 24 hours): Temp Pulse Resp BP Pulse Ox 97.4 F L 68 20 166/68 H 93 L 04/13/17 05:55 04/13/17 06:36 04/13/17 05:55 04/13/17 06:36 04/12/17 23:54 Intake and Output: 04/13/17 04/13/17 06:59 18:59 Intake Total 180 Balance 180 - Medications Medications: Current Medications Aspirin (Ecotrin) 81 mg PO QAM [facility] Last Admin: 04/12/17 10:18 Dose: 81 mg Atorvastatin Calcium (Lipitor) 10 mg PO HS [facility] Last Admin: 04/12/17 21:46 Dose: 10 mg Cholestyramine Resin (Questran) 4 gm PO BID [facility] Last Admin: 04/12/17 17:27 Dose: 4 gm Furosemide (Lasix) 40 mg IVP DAILY [facility] Last Admin: 04/12/17 17:01 Dose: 40 mg Levalbuterol HCl (Xopenex) 1.25 mg IH [id number] [facility] Last Admin: 04/13/17 07:42 Dose: 1.25 mg Methylprednisolone (Solu-Medrol) 40 mg IV Q12 [facility] Last Admin: 04/12/17 21:53 Dose: 40 mg Metoprolol Tartrate (Lopressor) 50 mg PO BID [facility] Last Admin: 04/12/17 17:27 Dose: 50 mg - Labs Labs: 04/13/17 06:30 04/13/17 06:30 PT 13.2 SECONDS (9.4-12.5) H 04/10/17 16:54 INR 1.15 (0.93-1.08) H 04/10/17 16:54 Assessment and Plan - Assessment and Plan (Free Text) Assessment: Cough/Body Aches/Congestion AF with RVR > RSR Transient hypotension + trops, doubt acute TX Acute renal insufficiency, resolved CAD/CABG/AVR COPD/Former Smoker Colon cancer/Hemicolectomy Plan: Continue metoprolol and ASA. IV Lasix Check echo OB as garcía As per Dr. De La Vega
--- NOTE | 2017-04-13 08:46 | PQF GENQUE ---
This form is a permanent part of the medical record Clarification of your documentation is requested to better reflect the severity of illness and intensity of treatment of your patient. Indicators present Card note- 3. Borderline troponin with negative CK-MB, doubt clear cardiac ischemia. Please document if NSTEMI was ruled out. No ischemia [] Specify: [] [] Specify: [] [] Specify: [] [] Specify: [] Location in the medical record that reflects the above clinical findings: [] Treatment Provided: [] PHYSICIAN'S RESPONSE Based on your medical judgment of the clinical indicators outlined above please clarify the following: [] Practitioner response [] If unable to determine, please check the box, sign and date. Present On Admission (POA) Indicator: [] Present at the time of admission [] Not present at the time of admission [] Clinically Undetermined In responding to this query, please exercise your independent professional judgment. The fact that a question is asked does not imply that any particular answer is desired or expected. Thank you for your clarification on this documentation. If you have any questions please call:[ ][phone] * Thank you, [ ]Sandy Catherine RN CDS [employer] [facility]
[2017-04-13] MEDS: Cholestyramine 4 gm/Pkt UD PO SCH (09:51)
[2017-04-13 12:18] VITALS: BP 130/86; PULSE 72; RESP 16; TEMP 98.4
--- NOTE | 2017-04-14 03:12 | DS ---
HISTORY OF PRESENT ILLNESS: This is an 87-year-old female, who has come here to the hospital, was found to have paroxysmal atrial fibrillation, she had gone back to sinus rhythm. The patient has no complaints of any chest pain, no shortness of breath, no headache. She states she feels well. The patient is going to be continued on her current medications. No plans on anticoagulation because of risk of multiple GI bleeds according to Dr. Castle. The patient has no complaints of any headaches, no dizziness, no nausea. PHYSICAL EXAMINATION: VITAL SIGNS: Temperature is 97.4, pulse is 65, blood pressure is 127/68, respirations 20. GENERAL: The patient is lying in bed, flat, comfortable. HEENT: No oral lesion. Anicteric sclerae. Moist mucosa. NECK: No JVD, adenopathy, or thyromegaly. CARDIOVASCULAR: S1 and S2, regular. No murmurs, rubs, or gallops. LUNGS: Clear to auscultation bilaterally. No wheeze, rales, or rhonchi. ABDOMEN: Bowel sounds are positive, soft, nontender and nondistended. EXTREMITIES: No cyanosis, clubbing or edema. LABS: White count of 2.3, hemoglobin 14.1. Chemistry, sodium 141, creatinine is 0.9, 0.4 last troponin. ASSESSMENT: 1. Paroxysmal atrial fibrillation, now in sinus rhythm. 2. Coronary artery disease, status post coronary artery bypass graft. 3. Aortic valve replacement. 4. Acute kidney injury, resolved. 5. Dyslipidemia. PLAN: The patient is currently comfortable. She is on Lopressor. She was given a dose of steroid yesterday and nebulizer treatment. She states she is feeling better. She was given a dose of Lasix as well. She is on aspirin. She is to continue with her cholestyramine. She is on aspirin for her heart disease as well as Lopressor. An echocardiogram has been ordered by Dr. Castle to evaluate the patient's valve. I will see if the patient is cleared to be discharged home by Dr. Woods. CONDITION: Stable. ACTIVITY: Increase as tolerated. Sahil Montaño MD [facility] # [id number]
--- NOTE | 2017-04-14 09:56 | CARD ---
APPROVED REPORT EXAM: Two-dimensional and M-mode echocardiogram with Doppler and color Doppler. Other Information Quality : FairRhythm : INDICATION AF, S/P AVR 2D DIMENSIONS Left Atrium (2D)4.3 (1.6-4.0cm)IVSd1.0 (0.7-1.1cm) LVDd4.4 (3.9-5.9cm)PWd1.2 (0.7-1.1cm) LVDs3.1 (2.5-4.0cm)FS (%) 29.1 % LVEF (%)56.0 (>50%) M-Mode DIMENSIONS Aortic Root2.90 (2.2-3.7cm)Aortic Cusp Exc.1.10 (1.5-2.0cm) Aortic Valve AoV Peak Oqglfudr442.0cm/sAoV VTI70.4cmAO Peak GR.50mmHg LVOT Peak Rhzffwgp11.2cm/sLVOT VTI20.30cmAO Mean GR.22mmHg Mitral Valve MV E Uwhmifwc57.3cm/sMV A Ahhuqplr349.0cm/sE/A ratio0.7 TDI Lateral E' Peak V11.10cm/sMedial E' Peak V7.12cm/sE/Lateral E'7.5 E/Medial E'11.7 Pulmonary Valve PV Peak Bqmijzao48.6cm/sPV Peak Grad.2mmHg Tricuspid Valve TR Peak Ktfqwxaq621xq/sRAP [id number] Peak Gr.26mmHg [id number] LEFT VENTRICLE The left ventricle is normal size. There is mild concentric left ventricular hypertrophy. The left ventricular function is normal. The left ventricular ejection fraction is within the normal range. There is normal LV segmental wall motion. RIGHT VENTRICLE The right ventricle is normal size. ATRIA The left atrium is mildly dilated. The right atrium size is normal. The interatrial septum is intact with no evidence for an atrial septal defect. AORTIC VALVE The AV prosthesis is not well visualized. MITRAL VALVE The mitral valve is moderately thickened but opens well. Mitral regurgitation is mild. TRICUSPID VALVE The tricuspid valve is normal in structure. There is mild tricuspid regurgitation. PULMONIC VALVE The pulmonic valve is not well visualized. There is mild pulmonic valvular regurgitation. <Conclusion> The left ventricle is normal size. There is mild concentric left ventricular hypertrophy. The left ventricular function is normal. The AV prosthesis is not well visualized.There is a mildly increased gradient detected. Mitral regurgitation is mild. There is mild tricuspid regurgitation.
== END 2017-04-13 14:08 | DRG 309 ==
LOC: ED 16:04 → ERH 22:07 → 3RSO 23:33
PROVIDERS: ADMIT Internal Medicine Nephrology; ATTEND Internal Medicine Nephrology
DX: I48.0 Paroxysmal atrial fibrillation (principal); N17.9 Acute kidney failure, unspecified; J44.9 Chronic obstructive pulmonary disease, unspecified; I50.9 Heart failure, unspecified; I11.0 Hypertensive heart disease with heart failure; E78.5 Hyperlipidemia, unspecified; I25.10 Atherosclerotic heart disease of native coronary artery without angina pectoris; I25.2 Old myocardial infarction; Z79.82 Long term (current) use of aspirin; Z79.899 Other long term (current) drug therapy; Z85.038 Personal history of other malignant neoplasm of large intestine; Z87.11 Personal history of peptic ulcer disease; Z87.891 Personal history of nicotine dependence; Z90.49 Acquired absence of other specified parts of digestive tract; Z95.1 Presence of aortocoronary bypass graft; Z95.2 Presence of prosthetic heart valve; Z95.5 Presence of coronary angioplasty implant and graft; R73.9 Hyperglycemia, unspecified